=== PATIENT | female | born 1960 | race Caucasian/White ===

== ENCOUNTER 2020-01-25 15:06 | Emergency (ER) | payer BC, OTHER ==
[2020-01-25 15:12] VITALS: BP 118/80
--- NOTE | 2020-01-25 15:41 | ER Document Report ---
ED Medical Screen (RME) - General Chief Complaint: Low Blood Pressure Stated Complaint: BLOOD PRESSURE ISSUE Time Seen by Provider: 01/25/20 15:26 Mode of Arrival: Ambulatory Information source: Patient Notes: Patient is a 59-year-old female comes the emergency room complaining of hypotension. Patient states that last week she was at [facility] in [facility] and was admitted for an end STEMI. Patient had a heart catheterization which she says was negative and all was clear. During her stay there patient states that she became hypotensive and janine graham ended up tilting her bed into Trendelenburg and monitoring her. Ever since her discharge this past Tuesday patient states her blood pressure has been low with it being systolic of 88 and diastolic of 40-50. She has felt lightheaded and dizzy. She is attempted to contact the customs import specialist at the [facility] but has not received a call back she is tried her PCP and he is out of town so she decided to come to the emergency room for evaluation. Patient has a summer home in the area and that is why they are here currently. Patient also states she had open heart surgery 2 years ago. Physical examination: Patient is a frail-appearing 59-year-old but she appears in no apparent distress at this time. Cardiac patient has document a regular rate and rhythm although palpation of patient's wrist on examination also auscultation does show that patient appears to be possibly passing some PVCs. She has a pause between some of her beats but it is regular. Does not feel like atrial fibrillation.(Patient does state that she does get PVCs often when she was on 37.5 mg of metoprolol they went away but when she started having hypotension they cut her back to 25 mg that come back.) Lungs: Bilateral breath sounds of breath sounds increased clear auscultation. Abdomen: Bowel sounds present all 4 nontender to palpation. This is in a sitting position. I have greeted and performed a rapid initial assessment of this patient. A comprehensive ED assessment and evaluation of the patient, analysis of test results and completion of the medical decision making process will be conducted by additional ED providers. Dictation of this chart was performed using voice recognition software; therefore, there may be some unintended grammatical errors. - Related Data Allergies/Adverse Reactions: diphenhydramine [From Benadryl] Allergy (Verified 01/25/20 15:19) Past Medical History - Social History Drug Abuse: None Physical Exam - Vital signs Vitals: Temp Pulse Resp BP Pulse Ox 97.7 F 85 18 118/80 100 01/25/20 15:11 01/25/20 15:11 01/25/20 15:11 01/25/20 15:11 01/25/20 15:11 Course - Vital Signs Vital signs: Temp Pulse Resp BP Pulse Ox 97.7 F 85 18 118/80 100 01/25/20 15:11 01/25/20 15:11 01/25/20 15:11 01/25/20 15:11 01/25/20 15:11
[2020-01-25 15:56] LABS: HEMATOCRIT 38.8 % (36.0-47.0); HEMOGLOBIN 13.2 g/dL (12.0-15.5); MEAN CORPUSCULAR HEMOGLOBIN 31.3 pg (27.0-33.4); MEAN CORPUSCULAR HGB CONC 34.1 g/dL (32.0-36.0); MEAN CORPUSCULAR VOLUME 92 fl (80-97); RED BLOOD COUNT 4.22 10^6/uL (3.72-5.28); RED CELL DISTRIBUTION WIDTH 14.9 % (11.5-14.0); WHITE BLOOD COUNT 5.2 10^3/uL (4.0-10.5)
[2020-01-25 16:13] LABS: ALBUMIN 4.6 g/dL (3.5-5.0); ALKALINE PHOSPHATASE 95 U/L (38-126); ANION GAP 6 (5-19); ASPARTATE AMINO TRANSFERASE 38 U/L (14-36); BILIRUBIN,TOTAL 0.9 mg/dL (0.2-1.3); BLOOD UREA NITROGEN 13 mg/dL (7-20); CALCIUM 9.8 mg/dL (8.4-10.2); CARBON DIOXIDE 25 mmol/L (22-30); CHLORIDE 99 mmol/L (98-107); GLUCOSE 91 mg/dL (75-110); POTASSIUM 4.6 mmol/L (3.6-5.0); TOTAL PROTEIN 7.4 g/dL (6.3-8.2)
--- NOTE | 2020-01-25 16:13 | ER Document Report ---
ED General - General Chief Complaint: Low Blood Pressure Stated Complaint: BLOOD PRESSURE ISSUE Time Seen by Provider: 01/25/20 15:26 Mode of Arrival: Ambulatory Notes: CHIEF COMPLAINT: Low blood pressure HPI: 59-year-old female recently discharged from [facility] 3 days ago after evaluation of cardiomyopathy presenting for low blood pressure. States she is tired ever since her discharge. Was discharged on both losartan and metoprolol but states when she checks her blood pressure at home it is in the low 80s so she is having to hold her medications. States that she does not have chest pain shortness of breath abdominal pain nausea vomiting or dizziness at this time. States she tried to call her tire adjuster and her primary care provider without success today so decided to come into the emergency department after speaking with the case management specialist. ROS: See HPI - all other systems were reviewed and are otherwise negative Constitutional: no fever Eyes: no drainage, no blurred vision ENT: no runny nose, no sore throat Cardiovascular: no chest pain Resp: no SOB, no cough GI: no vomiting, no diarrhea, no abdominal pain : no dysuria Integumentary: no rash Allergy: no hives Musculoskeletal: no extremity pain or swelling Neurological: no numbness/tingling, no weakness MEDICATIONS: I agree with the patient medications as charted by the RN. ALLERGIES: I agree with the allergies as charted by the RN. PAST MEDICAL HISTORY/PAST SURGICAL HISTORY: Reviewed and agree as charted by RN. SOCIAL HISTORY: Reviewed and agree as charted by RN. FAMILY HISTORY: No significant familial comorbid conditions directly related to patient complaint EXAM: Reviewed vital signs as charted by RN. CONSTITUTIONAL: Alert and oriented and responds appropriately to questions. Well-appearing; well-nourished HEAD: Normocephalic; atraumatic EYES: PERRL; Conjunctivae clear, sclerae non-icteric ENT: normal nose; no rhinorrhea; moist mucous membranes; pharynx without lesions noted, no uvula edema or deviation, no tonsillar hypertrophy, phonation normal NECK: Supple without meningismus; non-tender; no cervical lymphadenopathy, no masses CARD: RRR; no murmurs, no clicks, no rubs, no gallops; symmetric distal pulses RESP: Normal chest excursion without splinting or tachypnea; breath sounds clear and equal bilaterally; no wheezes, no rhonchi, no rales, pulse oximetry 98% on room air not hypoxic ABD/GI: Normal bowel sounds; non-distended; soft, non-tender, no rebound, no guarding; no palpable organomegaly or masses. BACK: The back appears normal and is non-tender to palpation, there is no CVA tenderness EXT: Normal ROM in all joints; non-tender to palpation; no cyanosis, no effusions, no edema SKIN: Normal color for age and race; warm; dry; good turgor; no acute lesions noted NEURO: Moves all extremities equally; Motor and sensory function intact PSYCH: The patient's mood and manner are appropriate. Grooming and personal hygiene are appropriate. MDM: 59-year-old female presenting with low blood pressure issues. She is on both losartan and metoprolol ER. I spoke with Dr. Rodrigues with [facility] at [facility]. He is very familiar with the patient. He requested the patient hold both of her blood pressure medications, check her blood pressure twice daily. She has an appointment originally with him on February 10 in the [place] [facility] he will change that to January 30 in the [place] [facility] and have someone from their appointment clinic reach out to them to make this change. I spoke with the patient and her spouse about this they are comfortable with this plan. She is otherwise completely asymptomatic at this time. Her initial blood pressure here today was 118/80, she does not have dizziness with standing, she did take her losartan today. She will now hold it until she sees her tire adjuster. - Related Data Allergies/Adverse Reactions: diphenhydramine [From Benadryl] Allergy (Verified 01/25/20 15:19) Past Medical History - General Information source: Patient - Social History Smoking Status: Never Smoker Drug Abuse: None Family History: Reviewed & Not Pertinent Patient has homicidal ideation: No Physical Exam - Vital signs Vitals: Temp Pulse Resp BP Pulse Ox 97.7 F 85 18 118/80 100 01/25/20 15:11 01/25/20 15:11 01/25/20 15:11 01/25/20 15:11 01/25/20 15:11 Course - Vital Signs Vital signs: Temp Pulse Resp BP Pulse Ox 97.7 F 85 18 118/80 100 01/25/20 15:11 01/25/20 15:11 01/25/20 15:11 01/25/20 15:11 01/25/20 15:11 - Laboratory Result Diagrams: 01/25/20 15:42 01/25/20 15:42 Discharge - Discharge Clinical Impression: Hypotension Qualifiers: Hypotension type: hypotension due to drug Qualified Code(s): I95.2 - Hypotension due to drugs Medication reaction Qualifiers: Encounter type: initial encounter Qualified Code(s): T50.905A - Adverse effect of unspecified drugs, medicaments and biological substances, initial encounter Condition: Stable Disposition: HOME, SELF-CARE Additional Instructions: Hold your blood pressure medications until you see your tire adjuster on January 30. We did speak with Dr. Rodrigues today and someone from their scheduling office should reach out to you today about making the change in your appointment date. Make sure you check your blood pressure twice daily record her findings and bring this to your appointment with Dr. Rodrigues to help facilitate your medical management
[2020-01-25 16:14] LABS: PLATELET COUNT 198 10^3/uL (150-450)
[2020-01-25 16:18] LABS: ABSOLUTE LYMPHOCYTES# (MANUAL) 1.1 10^3/uL (0.5-4.7); ABSOLUTE MONOCYTES # (MANUAL) 0.5 10^3/uL (0.1-1.4); BASOPHILS % (MANUAL) 0 % (0-2); EOSINOPHILS % (MANUAL) 2 % (0-6); LYMPHOCYTES % (MANUAL) 22 % (13-45); MONOCYTES % (MANUAL) 9 % (3-13); SEGMENTED NEUTROPHILS % (MAN) 67 % (42-78); TOTAL CELLS COUNTED 100
[2020-01-25 16:20] LABS: ANISOCYTOSIS SLIGHT; PLATELET CLUMPS PRESENT; PLATELET COMMENT ADEQUATE
--- NOTE | 2020-01-26 10:26 | EKG REPORT ---
SEVERITY:- ABNORMAL ECG - SINUS RHYTHM LVH WITH SECONDARY REPOLARIZATION ABNORMALITY ANTERIOR Q WAVES, POSSIBLY DUE TO LVH ST DEPRESSION, CONSIDER ISCHEMIA, ANT-LAT LDS : Confirmed by: Cristina Moulton 26-Jan-2020 10:25:01
== END 2020-01-25 16:23 | disposition home or self-care (01) ==
LOC: ER 15:06
DX: I95.2 Hypotension due to drugs (principal); T50.905A Adverse effect of unspecified drugs, medicaments and biological substances, initial encounter; I42.9 Cardiomyopathy, unspecified; I25.2 Old myocardial infarction; Z88.8 Allergy status to other drugs, medicaments and biological substances
CPT/HCPCS: 36415; 80053; 84443; 85025; 93005; 93010; 99285